=== PATIENT | female | born 1980 | race Caucasian/White ===

== ENCOUNTER 2021-10-25 11:14 | Outpatient (CLI) | payer MEDICAID, SELFPAY | END 2021-10-25 11:15 | disposition home or self-care (01) | PROVIDERS: PCP Physician Assistant Medical; Visit Provider Internal Medicine | DX: Z12.11 Encounter for screening for malignant neoplasm of colon (principal); Z80.0 Family history of malignant neoplasm of digestive organs | CPT/HCPCS: 45378; J2250; J2405; J3010 ==

== ENCOUNTER 2021-11-07 08:11 | Outpatient (CLI) | payer MEDICAID, SELFPAY ==
--- NOTE | 2021-11-07 08:15 | CRLHL7_ITS ---
For Patients: As a result of the Cures Act, medical imaging exams and procedure reports are released immediately into your electronic medical record. You may view this report before your referring provider. If you have questions, please contact your health care provider. BILATERAL DIGITAL SCREENING MAMMOGRAM WITH COMPUTER-AIDED DETECTION CLINICAL HISTORY: Routine screening exam. COMPARISON: None. TECHNIQUE: Digital mammogram in CC and MLO projections including computer-aided detection (CAD). BREAST COMPOSITION: The breasts are heterogeneously dense, which may obscure small masses. FINDINGS: RIGHT Breast: Focal asymmetric density 12 o`clock 6 cm from the nipple. LEFT Breast: No suspicious findings. IMPRESSION: RIGHT breast asymmetry/mass. RECOMMENDATIONS: Additional mammographic views of the RIGHT breast including 3D CC/MLO. RIGHT breast ultrasound may also be required. [facility] will contact the patient for follow-up. BI-RADS Category 0: Incomplete: Need Additional Imaging Evaluation and/or Prior Mammograms for Comparison A lay language report of this examination will be provided to the patient. Dictated by Gregg Leavitt MD @ 11/07/2021 10:27:18 AM /Dictated by: Gregg Leavitt MD @ 11/07/2021 10:27:00 AM (Electronically Signed)
== END 2021-11-07 08:12 | disposition home or self-care (01) ==
LOC: MAMMO 08:14
PROVIDERS: PCP Physician Assistant Medical; Visit Provider Physician Assistant Medical
DX: Z12.31 Encounter for screening mammogram for malignant neoplasm of breast (principal); N63.10 Unspecified lump in the right breast, unspecified quadrant
CPT/HCPCS: 77067

== ENCOUNTER 2021-11-12 10:34 | Outpatient (CLI) | payer MEDICAID, SELFPAY ==
--- NOTE | 2021-11-12 10:45 | CRLHL7_ITS ---
For Patients: As a result of the Century Cures Act, medical imaging exams and procedure reports are released immediately into your electronic medical record. You may view this report before your referring provider. If you have questions, please contact your health care provider. RIGHT DIAGNOSTIC MAMMOGRAM WITH COMPUTER-AIDED DETECTION AND TOMOSYNTHESIS, 11/12/2021 RIGHT BREAST ULTRASOUND, 11/12/2021 INDICATION: 41-year-old female with asymmetry. TECHNIQUE: Diagnostic RIGHT mammograms with RIGHT CC and MLO with tomosynthesis. Computer-aided detection was utilized. COMPARISON: Mammograms 11/07/2021. BREAST COMPOSITION: The breast is heterogeneously dense, which may obscure small masses FINDINGS: Focal asymmetry in the RIGHT breast at the 12 o`clock position, 6 cm from the nipple, appears to be overlapping tissue on tomosynthesis without definite irregular mass. No finding on MLO tomosynthesis to correspond to the abnormality on CC view. Targeted RIGHT breast ultrasound at the 12 o`clock position, approximately 6 cm from the nipple, demonstrates dense fibroglandular tissue. No mass, cyst or evidence of distortion. IMPRESSION: 1. No mammographic evidence of malignancy. 2. Targeted RIGHT breast ultrasound at the 12 o`clock position, approximately 6 cm from the nipple, is unremarkable. RECOMMENDATION: Recommend follow-up RIGHT CC and MLO views in 6 months. BI-RADS Category 3: Probably Benign Ernie Cloud M.D. Diagnostic/Musculoskeletal Radiologist [email or web address] Transcribed: 5:[address]/Dictated by: Ernie Cloud MD @ 11/12/2021 12:34:00 PM (Electronically Signed)
--- NOTE | 2021-11-12 11:15 | CRLHL7_ITS ---
For Patients: As a result of the Cures Act, medical imaging exams and procedure reports are released immediately into your electronic medical record. You may view this report before your referring provider. If you have questions, please contact your health care provider. SEE RIGHT DIAGNOSTIC MAMMOGRAM OF SAME DAY FOR COMBINED REPORT. CRL:[email or web address] RD/Dictated by: Ernie Cloud MD @ 11/12/2021 12:35:00 PM (Electronically Signed)
== END 2021-11-12 10:35 | disposition home or self-care (01) ==
LOC: MAMMO 10:34
PROVIDERS: PCP Physician Assistant Medical; Visit Provider Physician Assistant Medical
DX: R92.8 Other abnormal and inconclusive findings on diagnostic imaging of breast (principal)
CPT/HCPCS: 76642; 77065; G0279

== ENCOUNTER 2022-11-20 12:43 | Outpatient (CLI) | payer MEDICAID, SELFPAY ==
--- NOTE | 2022-11-20 13:00 | CRLHL7_ITS ---
For Patients: As a result of the Century Cures Act, medical imaging exams and procedure reports are released immediately into your electronic medical record. You may view this report before your referring provider. If you have questions, please contact your health care provider. BILATERAL SCREENING MAMMOGRAM WITH COMPUTER-AIDED DETECTION TECHNIQUE: CC and MLO views were obtained. These mammographic images have been obtained using full-field digital technique. These mammographic images were interpreted with the benefit of computer-aided detection. COMPARISON FILM: 11/07/21, 11/12/21 (rt). FINDINGS: There are scattered areas of fibroglandular density IMPRESSION: There is no radiographic evidence for malignancy. ASSESSMENT: BI-RADS Category 1: Negative RECOMMENDATION: Routine screening mammogram in 1 year. A lay language report of this examination will be provided to the patient. Gregg Leavitt M.D. Diagnostic Radiologist [email or web address] PILY/Dictated by: Gregg Leavitt MD @ 11/21/2022 9:05:00 AM (Electronically Signed)
== END 2022-11-20 12:44 | disposition home or self-care (01) ==
LOC: MAMMO 12:43
PROVIDERS: PCP Physician Assistant Medical; Visit Provider Physician Assistant Medical
DX: Z12.31 Encounter for screening mammogram for malignant neoplasm of breast (principal)
CPT/HCPCS: 77067

== ENCOUNTER 2023-10-02 14:13 | Outpatient (CLI) | payer OTHER, SELFPAY | END 2023-10-02 14:14 | disposition home or self-care (01) | LOC: LKVREF 14:14 | PROVIDERS: PCP Physician Assistant Medical; Visit Provider Family Medicine | DX: R10.12 Left upper quadrant pain (principal) | CPT/HCPCS: 80048 ==

== ENCOUNTER 2023-12-02 09:01 | Outpatient (CLI) | payer OTHER, SELFPAY ==
--- NOTE | 2023-12-02 09:00 | CRLHL7_ITS ---
For Patients: As a result of the Century Cures Act, medical imaging exams and procedure reports are released immediately into your electronic medical record. You may view this report before your referring provider. If you have questions, please contact your health care provider. Indication: LUQ ABDOMINAL PAIN Technique: Noncontrast CT abdomen and pelvis Please note that all CT scans at this facility use dose modulation, iterative reconstruction, and/or weight-based dosing when appropriate to reduce radiation dose to as low as reasonably achievable. Comparison: Ultrasound 12/20/2019 Findings: The lung bases are clear. Diffuse low-attenuation of the hepatic parenchyma with focal fatty sparing involving the left hepatic lobe, similar to the prior study. Liver measures 20.9 cm. Spleen is not enlarged. Splenule is present. The pancreas is normal. Adrenal glands are unremarkable. Nonobstructing 2.5 millimeter stone in the mid left kidney. Right kidney is unremarkable. Numerous subcentimeter retroperitoneal lymph nodes are present. Small umbilical hernia containing fat. No hiatal hernia. Normal appendix. Uterus is anteverted. Bladder incompletely distended. No adnexal mass. No fracture. Gallbladder absent. No biliary obstruction. Impression: Hepatomegaly with moderately severe diffuse hepatic steatosis and focal fatty sparing involving the left hepatic lobe. Nonobstructing 2.5 millimeter stone within the left kidney. Multiple subcentimeter retroperitoneal lymph nodes are nonspecific but may be associated with a chronic mild underlying enteritis. No bowel obstruction. No abscess. Please note that all CT scans at this facility use dose modulation, iterative reconstruction, and/or weight-based dosing when appropriate to reduce radiation dose to as low as reasonably achievable. Dictated by Gregg Leavitt MD @ 12/02/2023 1:01:36 PM (Electronically Signed)
== END 2023-12-02 09:02 | disposition home or self-care (01) ==
LOC: CT 09:01
PROVIDERS: PCP Physician Assistant Medical; Visit Provider Physician Assistant Medical
DX: R10.12 Left upper quadrant pain (principal); K76.0 Fatty (change of) liver, not elsewhere classified; N20.0 Calculus of kidney
CPT/HCPCS: 74176

== ENCOUNTER 2024-10-02 09:23 | Outpatient (CLI) | payer OTHER, SELFPAY | END 2024-10-02 09:24 | disposition home or self-care (01) | LOC: NFLDREF 23:49 | PROVIDERS: PCP Physician Assistant Medical; Referring Provider Physician Assistant Medical; Visit Provider Nurse Practitioner Family | DX: R30.0 Dysuria (principal); N20.0 Calculus of kidney | CPT/HCPCS: 87086 ==

== ENCOUNTER 2024-10-23 10:59 | Outpatient (CLI) | payer OTHER, SELFPAY | END 2024-10-23 11:00 | disposition home or self-care (01) | LOC: NFLDREF 10-27 12:22 | PROVIDERS: PCP Physician Assistant Medical; Referring Provider Physician Assistant Medical; Visit Provider Physician Assistant Medical | DX: R30.0 Dysuria (principal); N39.0 Urinary tract infection, site not specified; R39.9 Unspecified symptoms and signs involving the genitourinary system | CPT/HCPCS: 87086 ==

== ENCOUNTER 2024-11-28 12:11 | Outpatient (CLI) | payer OTHER, SELFPAY ==
[2024-11-30 03:28] LABS: HPV Source Cervical
[2024-12-01 10:56] LABS: Pap Test Digital Imaging Done
== END 2024-11-28 12:12 | disposition home or self-care (01) ==
PROVIDERS: PCP Physician Assistant Medical; Visit Provider Obstetrics & Gynecology
DX: N91.5 Oligomenorrhea, unspecified (principal); K76.0 Fatty (change of) liver, not elsewhere classified; Z11.51 Encounter for screening for human papillomavirus (HPV); Z12.4 Encounter for screening for malignant neoplasm of cervix
CPT/HCPCS: 83498; 84146; 84270; 84402; 84403; 84443; 84702; 87624; 87625; 88141; 88142; 88175

== ENCOUNTER 2024-12-05 11:01 | Outpatient (CLI) | payer OTHER, SELFPAY ==
--- NOTE | 2024-12-05 11:15 | CRLHL7_ITS ---
For Patients: As a result of the Century Cures Act, medical imaging exams and procedure reports are released immediately into your electronic medical record. You may view this report before your referring provider. If you have questions, please contact your health care provider. INDICATION: LT OV CYST COMPARISON: CT 12/02/2023 TECHNIQUE: 2D whitlock-scale and color Doppler images were acquired of the pelvis using a transabdominal and transvaginal approach. Transvaginal imaging performed to better visualize the endometrial stripe and ovaries. FINDINGS: Right fundal partially exophytic fibroid measures 10 x 7 x 10 millimeters. Uterus measures 9.3 cm in length by 4.4 cm in AP diameter by 5.5 cm in transverse dimension. The endometrial lining appears normal and measures 6 mm in composite thickness. The right ovary measures 3.1 x 1.6 x 2.3 cm in size and the left ovary measures 3.8 x 3.0 x 2.9 cm. The ovaries demonstrate normal arterial and venous blood flow on color Doppler analysis. There are no suspicious fluid collections within the cul-de-sac. Left ovarian cyst is present which measures 2.6 x 3.0 x 2.6 cm. Internal daughter cyst is noted which measures 1.1 cm. No internal color flow or solid papillary component. IMPRESSION: Benign left ovarian cyst which measures 2.6 x 3.0 x 2.6 cm and associated 1.1 cm daughter cyst. Dictated by Gregg Leavitt MD @ 12/05/2024 3:52:08 PM (Electronically Signed)
== END 2024-12-05 11:02 | disposition home or self-care (01) ==
LOC: US 11:02
PROVIDERS: PCP Physician Assistant Medical; Visit Provider Obstetrics & Gynecology
DX: N83.202 Unspecified ovarian cyst, left side (principal)
CPT/HCPCS: 76830; 76856

== ENCOUNTER 2025-01-09 09:16 | Outpatient (CLI) | payer OTHER, SELFPAY | END 2025-01-09 09:17 | disposition home or self-care (01) | PROVIDERS: PCP Physician Assistant Medical; Visit Provider Obstetrics & Gynecology | DX: N91.5 Oligomenorrhea, unspecified (principal); K76.0 Fatty (change of) liver, not elsewhere classified; Z13.6 Encounter for screening for cardiovascular disorders | CPT/HCPCS: 80061; 80076; 83001 ==